=== PATIENT | male | born 1960 | race Caucasian/White ===

== ENCOUNTER 2023-10-22 19:42 | Emergency (ER) | payer MEDICARE, SELFPAY ==
[2023-10-22 19:45] VITALS: PULSE 110; RESP 22; TEMP 36.8; O2SAT 98
[2023-10-22 19:48] VITALS: BP 145/78
[2023-10-22] MEDS: HYDROcodone/acetaminophen (*CRX) 10-325 MG TABLET 1 TAB PO (20:33)
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
[2023-10-22 21:23] VITALS: BP 121/74; PULSE 99; RESP 20; O2SAT 97
== END 2023-10-22 21:24 | disposition home or self-care (01) ==
PROVIDERS: Emergency Provider Emergency Medicine; PCP Internal Medicine
DX: T25.221A Burn of second degree of right foot, initial encounter (principal); T25.231A Burn of second degree of right toe(s) (nail), initial encounter; T31.0 Burns involving less than 10% of body surface; F17.210 Nicotine dependence, cigarettes, uncomplicated; X12.XXXA Contact with other hot fluids, initial encounter
CPT/HCPCS: 99283; A9270